=== PATIENT | female | born 1965 | race Caucasian/White ===

== ENCOUNTER 2017-03-18 09:58 | Emergency (ER) | payer BC ==
[2017-03-18] MEDS ORDERED: ZOCOR (10:04)
[2017-03-18] MEDS ORDERED: FISH OIL300 MG (10:04)
[2017-03-18] MEDS ORDERED: SYNTHROID (10:05)
== END 2017-03-18 11:00 | disposition home or self-care (01) ==
LOC: SED 09:58
DX: T78.49XA Other allergy, initial encounter (principal)
CPT/HCPCS: 99282

== ENCOUNTER 2017-03-20 07:56 | Emergency (ER) | payer BC ==
[~2017-03-20 07:56] MED LIST: FISH OIL300 MG; SYNTHROID; ZOCOR
== END 2017-03-20 10:55 | disposition home or self-care (01) ==
LOC: CED 07:56
DX: T78.2XXA Anaphylactic shock, unspecified, initial encounter (principal); E78.5 Hyperlipidemia, unspecified; Z79.899 Other long term (current) drug therapy; E03.9 Hypothyroidism, unspecified
CPT/HCPCS: 96374; 96375; 99284; J1200; J2930

== ENCOUNTER → 2017-03-31 | Outpatient (CLI) | payer BC ==
[2017-04-04 01:11] LABS: PORK IGE CONVENTIONAL CLASS 0 (0); PORK IGE KU/L <0.10 (<0.10)
== END | disposition home or self-care (01) ==
LOC: CLAB 11:11
PROVIDERS: Allergy & Immunology
DX: J45.20 Mild intermittent asthma, uncomplicated (principal); J30.1 Allergic rhinitis due to pollen; J30.89 Other allergic rhinitis; T78.2XXA Anaphylactic shock, unspecified, initial encounter
CPT/HCPCS: 36415; 82785; 86003